=== PATIENT | female | born 1960 | race Caucasian/White ===

== ENCOUNTER 2016-12-06 18:23 | Emergency (ER) | payer MEDICAID ==
[2016-12-06 18:32] VITALS: BP 127/77
--- NOTE | 2016-12-06 18:55 | ERNOTE ---
Psychological HPI - Date Date of Service: 12/06/16 - General Chief Complaint: Anxiety Source: patient, family Exam Limitations: no limitations - Immun/Allergies/Home Medications Allergies/Adverse Reactions: Allergies bee venom (honey bee) Allergy (Verified 12/06/16 18:32) Hives ibuprofen Allergy (Verified 12/06/16 18:32) sucralfate Adverse Reaction (Verified 12/06/16 18:32) Nausea Home Medications: HOME MEDICATIONS Albuterol Sulfate 2.5 mg IH QID 09/25/12 [Last Taken Unknown] Sumatriptan Succinate [Imitrex] 100 mg PO PRN PRN 09/25/12 [Last Taken Unknown] Sertraline HCl [Zoloft] 50 mg PO DAILY 06/01/15 [Last Taken Unknown] Acetaminophen [Tylenol] 650 mg PO QID PRN #0 tablet 10/11/15 [Last Taken Unknown ] Clonidine HCl [Catapres] 0.2 mg PO BID 01/08/16 [Last Taken Unknown] Albuterol Sulfate [Proair Hfa] 1 - 2 puff IH Q4H PRN #1 inhaler 09/22/16 [Last Taken Unknown] Doxycycline Hyclate [Vibratab] 100 mg PO BID #14 tablet 09/22/16 [Last Taken Unknown] Potassium Chloride [Klor-Con] 20 meq PO BID #4 packet 09/22/16 [Last Taken Unknown] Prednisone [Deltasone] 20 mg PO BID #7 tablet 09/22/16 [Last Taken Unknown] - History of Present Illness Narrative: Patient came for evaluation. Patient was reported she double up on her medications and then got dizzy. Patient at the moment is feeling well she came with a daughter that wanted patient to be evaluated, but patient refused to be evaluated. Patient at the moment is aware of her surroundings is oriented to time, place, person, and situation. Patient with no LOC or any trauma reported. Time Seen by Provider: 12/06/16 18:42 Arrived by: private car Onset/duration: gone now, better Associated Symptoms: other - Patient was feeling anxious but now is feeling well Prior Treament: other - None Review of Systems - Review of Systems Constitutional: Absent: fever, chills, malaise EYE: Present: no symptoms reported ENT: Present: no symptoms reported Respiratory: Absent: cough Cardiology: Absent: chest pain, palpitations, syncope, edema, claudication Gastrointestinal/Abdominal: Absent: nausea, vomiting, diarrhea, constipation, abdominal pain Genitourinary: Absent: frequency Musculoskeletal: Present: no symptoms reported Skin: Present: no symptoms reported Neurological: Present: anxiety. Absent: depressed, emotional problems, headache , dizziness/light-headedness, seizure, weakness, numbness, tingling, tremors, pre-existing deficit Hematologic/Lymphatic: Absent: easy bruising, easy bleeding Psych: Present: anxiety. Absent: depressed, emotional problems - Patient's Past Medical History Patient History - Medical: Anxiety, Arthritis, Bipolar, Depression, GERD Patient History - Cardiac/Respiratory: Asthma, COPD Patient History - Cancer: No Hx of Cancer Patient History - Surgical Procedures: Cholecystectomy, , D & C, Tubal Ligation, Other - Family History Mother Family History - Medical: Diabetes Type 1 Family History - Cardiac/Respiratory: CHF, CVA/Stroke Father Family History - Medical: Brother Family History - Medical: Diabetes Type 1 Family History - Cardiac/Respiratory: CVA/Stroke - Social History Living Situations: home Smoking Status: Former smoker Alcohol Use: none Drug Use: none Physical Exam - Physical Exam General Appearance: Present: wd/wn, alert, no apparent distress Eye Exam: Normal inspection: bilateral, PERRL: bilateral, EOMI: bilateral Ears, Nose, Throat: Present: normal ENT inspection, hearing grossly normal, normal pharynx Neck: Present: normal inspection, nontender Respiratory: Present: no respiratory distress, normal breath sounds, no accessory muscle use, chest nontender, lungs clear Cardiovascular/Chest: Present: regular rate, rhythm, no murmur, normal peripheral pulses Gastrointestinal/Abdominal: Present: normal bowel sounds, nontender, nondistended, soft, no organomegaly Back Exam: Present: no CVA tenderness Extremity Exam: Present: normal inspection, non-tender, no edema, normal range of motion Neurological Exam: Present: alert, oriented, normal mood/affect, no motor/ sensory deficits, other - Patient with no suicidal ideation, homicidal manifestation, or active hallucinations at this point. Patient with a full mental status, is aware of her environment. Skin Exam: Absent: diaphoresis, cyanosis, jaundice, pallor, skin rash Lymphatic Exam: Present: no adenopathy ED Progress - Date and Time Seen: Date and Time: 12/06/16 18:51 Patient was offered a medical evaluation was done a basic physical evaluation, but patient refused any further testing and wanted to go home. Patient was explained risk and benefits and welcome to return is she changed her mind. Patient at the moment was in no distress. RN completed AMA form as hospital bylaws request. - Vital Signs Patient's Vital Signs:: I have reviewed the patient's vital signs. Vital Signs: Vital Signs 12/06/16 18:27 Temperature 36.4 C Pulse Rate 139 H Respiratory 24 H Rate Blood Pressure 127/77 O2 Sat by Pulse 98 Oximetry - Progress/Reassessment Chief Complaint: Anxiety Departure Clinical Impression: Anxiety - Departure Disposition: Against medical advice Condition: Stable Instructions: Panic Attacks, [id number] Referrals: Madi Cevallos MD [Primary Care Provider] -
== END 2016-12-06 18:48 | disposition left against medical advice (07) ==
LOC: ER 18:23
DX: F41.9 Anxiety disorder, unspecified (principal); Z87.891 Personal history of nicotine dependence; Z90.49 Acquired absence of other specified parts of digestive tract

== ENCOUNTER 2016-12-06 19:26 | Emergency (ER) | payer MEDICAID ==
[2016-12-06] MEDS ORDERED: ONDANSETRON HCL/PF 2 MG/ML VIAL IV ONE (19:34)
[2016-12-06] MEDS ORDERED: FAMOTIDINE 10 MG/ML VIAL IV ONE ×2 (19:37→19:38)
[2016-12-06] MEDS ORDERED: ONDANSETRON HCL/PF 2 MG/ML VIAL ONE (19:38)
[2016-12-06 20:02] LABS: Urine Bilirubin Negative (NEGATIVE); Urine Blood Negative /ul (NEGATIVE); Urine Ketone Negative (NEGATIVE); Urine Nitrite Negative (NEGATIVE); Urine Protein Negative (NEGATIVE); Urine Specific Gravity <=1.005 SP.GR. (1.005-1.010); Urine Urobilinogen Normal (NORMAL)
--- NOTE | 2016-12-06 20:02 | ERNOTE ---
Medical Problem HPI - General Chief Complaint: Nausea/Vomiting Time Seen by Provider: 12/06/16 19:34 Source: patient, family Exam Limitations: clinical condition - Immun/Allergies/Home Medications Immunizations: IMMUNIZATION HX Immunizations Up to Date Yes History of Influenza Vaccine No Hx Pneumococcal Vaccination No Allergies/Adverse Reactions: Allergies bee venom (honey bee) Allergy (Verified 12/06/16 18:32) Hives ibuprofen Allergy (Verified 12/06/16 18:32) sucralfate Adverse Reaction (Verified 12/06/16 18:32) Nausea Home Medications: HOME MEDICATIONS Albuterol Sulfate 2.5 mg IH QID 09/25/12 [Last Taken Unknown] Sumatriptan Succinate [Imitrex] 100 mg PO PRN PRN 09/25/12 [Last Taken Unknown] Sertraline HCl [Zoloft] 50 mg PO DAILY 06/01/15 [Last Taken Unknown] Acetaminophen [Tylenol] 650 mg PO QID PRN #0 tablet 10/11/15 [Last Taken Unknown ] Clonidine HCl [Catapres] 0.2 mg PO BID 01/08/16 [Last Taken Unknown] Albuterol Sulfate [Proair Hfa] 1 - 2 puff IH Q4H PRN #1 inhaler 09/22/16 [Last Taken Unknown] Doxycycline Hyclate [Vibratab] 100 mg PO BID #14 tablet 09/22/16 [Last Taken Unknown] Potassium Chloride [Klor-Con] 20 meq PO BID #4 packet 09/22/16 [Last Taken Unknown] Prednisone [Deltasone] 20 mg PO BID #7 tablet 09/22/16 [Last Taken Unknown] Potassium Chloride [K-Dur] 20 meq PO DAILY #30 tab 12/06/16 [Last Taken Unknown] - History of Present History Narrative: Pt states that she has had abdominal pain for 1 week. Family states that the larger problem is that she has been confused and not sleeping for more than a month Timing: getting worse Severity: moderate, severe Review of Systems - Review of Systems Constitutional: Absent: recent illness, fever EYE: Present: no symptoms reported ENT: Present: no symptoms reported Respiratory: Present: shortness of breath - mild, cough Cardiology: Absent: chest pain Gastrointestinal/Abdominal: Present: See HPI, nausea, vomiting, abdominal pain Genitourinary: Present: no symptoms reported Musculoskeletal: Present: no symptoms reported Skin: Absent: rash Neurological: Present: emotional problems, dizziness/light-headedness, other - confusion, Endocrine: Present: no symptoms reported Hematologic/Lymphatic: Present: no symptoms reported - Patient's Past Medical History Patient History - Medical: Anxiety, Arthritis, Bipolar, Depression, GERD, Liver Disease - Hep C Patient History - Cardiac/Respiratory: Asthma, COPD Patient History - Cancer: No Hx of Cancer Patient History - Surgical Procedures: Cholecystectomy, , D & C, Tubal Ligation, Other - Family History Mother Family History - Medical: Diabetes Type 1 Family History - Cardiac/Respiratory: CHF, CVA/Stroke Father Family History - Medical: Brother Family History - Medical: Diabetes Type 1 Family History - Cardiac/Respiratory: CVA/Stroke - Social History Living Situations: home Smoking Status: Never smoker Have you smoked in the past 12 months: No Do you dip or chew tobacco: No Patient requests Smoking Cessation Consult: No Initiate information on Smoking Cessation: No Alcohol Use: none Drug Use: none Physical Exam - Physical Exam General Appearance: Present: wd/wn, alert, no apparent distress Eye Exam: Normal inspection: bilateral, PERRL: bilateral, EOMI: bilateral Ears, Nose, Throat: Present: normal ENT inspection, hearing grossly normal, normal pharynx Neck: Present: normal inspection, nontender Respiratory: Present: no respiratory distress, normal breath sounds, no accessory muscle use, chest nontender, lungs clear Cardiovascular/Chest: Present: no murmur, normal peripheral pulses, tachycardia Gastrointestinal/Abdominal: Present: normal bowel sounds, tenderness - minimal b /l lower quads. Absent: guarding, rebound Back Exam: Present: normal inspection, normal range of motion Extremity Exam: Present: normal inspection, non-tender, no edema, normal range of motion Neurological Exam: Present: alert, oriented, normal mood/affect, no motor/ sensory deficits Skin Exam: Present: normal color, warm/dry Lymphatic Exam: Present: no adenopathy ED Progress - Results and Orders Patient's Lab Results:: I have reviewed the patient's lab results. Results and Orders: Laboratory Tests 12/06/16 12/06/16 12/06/16 19:55 19:55 19:55 WBC 4.6 Hgb 13.9 Hct 41.6 Plt Count 160 PT 10.6 INR (Anticoag Therapy) 1.02 PTT ([place]) 26.9 Sodium 143 H Potassium 2.6 L D Chloride 104 Carbon Dioxide 24.9 Anion Gap 16.7 H BUN 5 Creatinine 1.10 Est GFR (Non-Af Amer) 54 L Random Glucose 169 H Calcium 8.6 Total Bilirubin 0.3 AST 16 ALT 19 Alkaline Phosphatase 73 Troponin I Less than 0.017 Total Protein 8.0 Albumin 3.8 Amylase 54 Lipase 99 Urine Color Urine Appearance Urine pH Ur Specific [place] Urine Protein Urine Glucose (UA) Urine Ketones Urine Blood Urine Nitrate Urine Bilirubin Urine Urobilinogen Ur Leukocyte Esterase Urine RBC Urine WBC Ur Epithelial Cells Urine Bacteria Hyaline Casts Urine Culture Comments Urine Opiates Screen Barbiturate Screen Ur Phencyclidine Scrn Urine Amphetamine U Benzodiazepines Scrn Urine Cocaine Screen Urine Marijuana (THC) 12/06/16 12/06/16 19:55 19:55 WBC Hgb Hct Plt Count PT INR (Anticoag Therapy) PTT ([place]) Sodium Potassium Chloride Carbon Dioxide Anion Gap BUN Creatinine Est GFR (Non-Af Amer) Random Glucose Calcium Total Bilirubin AST ALT Alkaline Phosphatase Troponin I Total Protein Albumin Amylase Lipase Urine Color Yellow Urine Appearance Clear Urine pH 6.0 Ur Specific [place] <=1.005 Urine Protein Negative Urine Glucose (UA) Negative Urine Ketones Negative Urine Blood Negative Urine Nitrate Negative Urine Bilirubin Negative Urine Urobilinogen Normal Ur Leukocyte Esterase 25 H Urine RBC None seen Urine WBC 0-5 Ur Epithelial Cells 0-5 Urine Bacteria None seen Hyaline Casts 0-5 H Urine Culture Comments Culture to follow Urine Opiates Screen Negative Barbiturate Screen Negative Ur Phencyclidine Scrn Negative Urine Amphetamine Negative U Benzodiazepines Scrn Negative Urine Cocaine Screen Negative Urine Marijuana (THC) Positive H - Vital Signs Patient's Vital Signs:: I have reviewed the patient's vital signs. Vital Signs: Vital Signs 12/06/16 12/06/16 12/06/16 18:27 19:26 19:57 Temperature 36.4 C 36.5 C Pulse Rate 134 H 126 H Respiratory 16 16 Rate Blood Pressure 127/77 113/79 113/79 O2 Sat by Pulse 93 97 Oximetry - X-Ray X-Ray #1 X-Ray: chest Interpretation: Reviewed by me X-ray Comments: No edema or infiltrate. peribronchial thickening suggesting bronchitis. - CT/Ultrasound CT/Ultrasound Narrative: CT head: nothing acute CT abd/ pelvis: hepatic steatosis throughout the liver. Mild splenomegaly. Hiatal hernia. no obstruction. non-specific gas pattern - Progress/Reassessment Chief Complaint: Nausea/Vomiting Progress:: Improved Progress Note-Subjective: 12/06/16 21:08 Discussed hypokalemia with patient and daughter, they state she has had this before. Discussed liver changes on CT, pt states she has had hep. C. Discussed possible anticholenergic SE of hyoscymine and that could be the reason for her intermittent confusion. Discussed stopping Marijuana use as well. Departure - Departure Clinical Impression: Hypokalemia, Confusion caused by a drug, Adverse effect of other parasympatholytics [anticholinergics and antimuscarinics] and spasmolytics, initial encounter Disposition: Home Follow Up Needed Condition: Good Instructions: Hypokalemia, Confusion Additional Instructions: Take potassium daily. stop the hyoscyamine. See Dr. Dominguez in a week or so Prescriptions: Potassium Chloride [K-Dur] 20 meq PO DAILY #30 tab
[2016-12-06 20:04] LABS: Hematocrit 41.6 % (37.0-47.0); Hemoglobin 13.9 gm/dL (12.5-16.0); Mean Corpuscular Hemoglobin 30.1 pg (27-31); Mean Corpuscular Hgb Conc 33.4 g/dl (32-36); Mean Platelet Volume 10.4 fl (6.0-9.5); Neutrophil # 2.6 K/mm3 (1.3-6.0); Platelet Count 160 K/mm3 (150-450); Red Blood Count 4.62 M/mm3 (4.2-5.4); Red Cell Distribution Width 13.4 % (11.5-14.0); White Blood Count 4.6 K/mm3 (4.0-10.5)
[2016-12-06 20:14] LABS: Prothrombin Time (Patient) 10.6 Seconds (9.4-11.4)
[2016-12-06 20:15] LABS: INR 1.02 INR (0.90-1.10); Partial Thrombolplastin Time 26.9 Seconds (24-32)
[2016-12-06 20:16] LABS: Cocaine Ur Negative (NEGATIVE); Urine Appearance Clear; Urine Bacteria None Seen; Urine Barbiturate Negative (NEGATIVE); Urine Benzodiazepines Negative (NEGATIVE); Urine Color Yellow; Urine Hyaline Cast 0-5 /LPF; Urine Opiates Negative (NEGATIVE); Urine PCP Negative (NEGATIVE); Urine RBC None Seen /hpf (0-5); Urine WBC 0-5 /hpf (0-5)
[2016-12-06 20:17] LABS: Urine THC Positive (NEGATIVE)
[2016-12-06 20:23] LABS: ALT 19 U/L (19-67); AST 16 U/L (0-48); Albumin * 3.8 gm/dl (3.4-5.0); Alkaline Phosphatase * 73 U/L (50-170); Amylase * 54 U/L (25-115); Anion Gap 16.7 mmol/L (6.8-13.8); BUN/Creatinine Ratio 4.5 (9.0-21.6); Bilirubin, Total 0.3 mg/dL (0.0-1.1); Blood Urea Nitrogen 5 mg/dL (3-23); Ca. Corrected For Albumin 8.4 mg/dL (8.4-10.2); Calcium * 8.6 mg/dL (7.9-10.9); Carbon Dioxide 24.9 mmol/L (24-32.6); Chloride 104 mmol/L (97-106); Glucose * 169 mg/dL (70-110); Lipase 99 U/L (73-393); Potassium 2.6 mmol/L (3.4-4.6); Sodium 143 mmol/L (132-142); Troponin I Less than 0.017 ng/ml (0.00-0.10)
[2016-12-06 20:53] VITALS: BP 118/81
[2016-12-06] MEDS ORDERED: POTASSIUM CHLORIDE 20 MEQ TABLET.SA PO ONE (20:58)
[2016-12-06] MEDS ORDERED: POTASSIUM CHLORIDE 20 MEQ TABLET.SA ONE (20:59)
== END 2016-12-06 21:05 | disposition home or self-care (01) ==
LOC: ER 19:26
DX: E87.6 Hypokalemia (principal); T44.3X5A Adverse effect of other parasympatholytics [anticholinergics and antimuscarinics] and spasmolytics, initial encounter; F19.921 Other psychoactive substance use, unspecified with intoxication with delirium; Z90.49 Acquired absence of other specified parts of digestive tract
CPT/HCPCS: 36415; 70450; 71020; 74176; 80053; 81001; 82150; 83690; 84484; 85025; 85610; 85730; 87086; 93005; 96374; 99284; G0479

== ENCOUNTER 2017-01-03 20:14 | Emergency (ER) | payer MEDICAID ==
[2017-01-03 20:42] VITALS: BP 103/67
--- OUTSIDE RECORDS SUMMARY | 2017-01-03 20:46 | XMS REPORT | Continuity of Care Document ---
:1960 Author Organization [facility] ([facility]) Address [address] [place] [address] Phone [phone] Care Team Providers Name Role Phone Harsh Saavedra Primary Care Provider [phone] Source Comments This disclosure is being made pursuant to the Care Everywhere program, applicable federal and state laws, and may not contain all informaitonavailable regarding this patient.[facility] ([facility]) Active Allergies and Adverse Reactions No Known Allergies Current Medications Prescription Sig. Disp. Refills Start Date End Date Status cyclobenzaprine 10 mg Take 10 mg by Active tablet mouth 3 times daily . SUMAtriptan 100 mg Take 100 mg by Active tablet mouth daily as needed May repeat in 2 hours if needed. SERTraline 50 mg Take 50 mg by Active tablet mouth 3 times daily . chlorproMAZINE 25 mg Take 25 mg by Active tablet mouth 4 times daily as needed . zolpiDEM 10 mg tablet Take 10 mg by Active mouth at bedtime traMADol 50 mg tablet Take 50 mg by Active mouth at bedtime ALPRAZolam 1 mg tablet Take 1 mg by Active mouth 4 times daily hyoscyamine 0.125 mg Take 125 mcg by Active tablet mouth 3 times daily . cloNIDine HCl 0.2 mg Take 0.2 mg by Active tablet mouth 3 times daily ledipasvir-sofosbuvir Take 1 tablet by 28 tablet 2 07/15/2015 Active (HARVONI) 90-400 mg mouth daily per tablet omeprazole 20 mg Take 1 capsule 30 capsule 2 01/19/2016 Active enteric coated capsule (20mg) by mouth once daily x 7 days, then discontinue completely. Active Problems Problem Noted Date Chronic hepatitis C without hepatic coma Gt 1b Low viral load, minimal 2014 fibrosis Treatment Naive THC pos urine 2014 Overview: hep C Anxiety and depression 07/15/2015 Overview: depression Chronic pain syndrome 07/15/2015 Most Recent Encounters Date Type Specialty Providers Description 10/11/2016 Orders/Notes Med GI/Hepatology Alton Silva MD Dx: Hepatitis C (Primary Dx) Immunizations Name Dates Previously Given Next Due Hepatitis B, unspecified 12/29/1996 Social History Tobacco Use Types Packs/Day Years Used Date Never Smoker Smokeless Tobacco: Never Used Alcohol Use Drinks/Week oz/Week Comments No Last Filed Vital Signs Vital Sign Reading Time Taken Blood Pressure 101/58 07/15/2015 7:00 AM CDT Pulse 94 07/15/2015 7:00 AM CDT Temperature 36.4 C (97.5 F) 07/15/2015 7:00 AM CDT Respiratory Rate 16 08/15/2006 12:00 AM CDT Height 1.6 m (5' 3") 01/19/2016 11:00 AM MANAGER APPLICATION Weight 72 kg (158 lb 11.7 oz) 01/19/2016 11:00 AM MANAGER APPLICATION Body Mass Index 28.13 01/19/2016 11:00 AM MANAGER APPLICATION Oxygen Saturation 99% 10/20/2014 11:12 AM MANAGER APPLICATION Plan of Care Date Type Specialty Providers Description 02/08/2017 Appointment Radiology Chief Comp: Patient Reported Reason For Visit 02/08/2017 Appointment Med GI/Hepatology Alton Silva MD Chief Comp: Patient [address] [place] [address] Visit [phone] (Fax) Health Maintenance Due Date Last Done Comments HCV Screening 1960 Tdap Vaccine 1970 Lipid Disorder Screening 1977 MMR Vaccine 1977 Td Vaccine 1977 Pneumococcal Vaccine (1 of 1 - PPSV23) 1978 Hepatitis B Vaccine (2 of 3 - Primary Series) 01/26/1997 12/29/1996 Mammogram 1999 Cervical Cancer Screening 01/12/2000 01/12/1997 Colonoscopy 08/16/2009 Influenza Vaccine: Seasonal (#1) 06/19/2016 Results from Last 3 Months Not on file
--- NOTE | 2017-01-03 21:11 | ERNOTE ---
Medical Problem HPI - Narrative Date of Service: 01/03/17 - General Chief Complaint: General Assessment Time Seen by Provider: 01/03/17 20:37 Source: patient, RN notes reviewed, old records Exam Limitations: other - poor historian - Immun/Allergies/Home Medications Immunizations: IMMUNIZATION HX Immunizations Up to Date Yes History of Influenza Vaccine No Hx Pneumococcal Vaccination No Allergies/Adverse Reactions: Allergies bee venom (honey bee) Allergy (Verified 01/03/17 20:23) Hives ibuprofen Allergy (Verified 01/03/17 20:23) sucralfate Adverse Reaction (Verified 01/03/17 20:23) Nausea Home Medications: HOME MEDICATIONS Sumatriptan Succinate [Imitrex] 100 mg PO PRN PRN 09/25/12 [Last Taken Unknown] Acetaminophen [Tylenol] 650 mg PO QID PRN #0 tablet 10/11/15 [Last Taken Unknown ] Clonidine HCl [Catapres] 0.2 mg PO TID 01/08/16 [Last Taken Unknown] Potassium Chloride [Klor-Con] 20 meq PO BID #4 packet 09/22/16 [Last Taken Unknown] Albuterol Sulfate [Proair Hfa] 1 - 2 puff IH Q6H PRN 01/03/17 [Last Taken Unknown] Cyclobenzaprine HCl [Flexeril] 10 mg PO TID 01/03/17 [Last Taken Unknown] Omeprazole 40 mg PO DAILY 01/03/17 [Last Taken Unknown] - Pain Score Pain Score #1 Pain Score: 0 - History of Present History Narrative: 56 y/o female ambulatory to the ED for lightheadedness, paresthesias and generally not feeling well since earlier today. She saw her PCP yesterday and adjustments were made to her medications. She believes this is the cause of her symptoms. Her Clonopin and Depakote were increased from once a day at bedtime to twice a day. She was also started on Risperdal. She denies any other symptoms , but is concerned that she will not be able to sleep tonight. Review of Systems - Review of Systems Constitutional: Present: malaise. Absent: fever, chills EYE: Absent: eye pain, blurred vision ENT: Absent: ear pain, nose congestion, sore throat Respiratory: Absent: shortness of breath, cough Cardiology: Absent: chest pain, syncope Gastrointestinal/Abdominal: Absent: nausea, vomiting, diarrhea, abdominal pain, eating less, drinking less Genitourinary: Present: no symptoms reported Musculoskeletal: Absent: muscle pain, joint pain Neurological: Present: dizziness/light-headedness, numbness, tingling. Absent: headache, weakness Endocrine: Present: no symptoms reported Hematologic/Lymphatic: Present: no symptoms reported Psych: Present: anxiety - Patient's Past Medical History Patient History - Medical: Anxiety, Arthritis, Bipolar, Depression, GERD, Liver Disease Patient History - Cardiac/Respiratory: Asthma, Bronchitis, COPD, CVA/Stroke, Pneumonia, Home O2 Use Patient History - Cancer: No Hx of Cancer Patient History - Surgical Procedures: Cholecystectomy, , D & C, Tubal Ligation, Other Patient History - Other: Other LMP (females 10-50): Menopausal - Family History Mother Family History - Medical: Diabetes Type 1 Family History - Cardiac/Respiratory: CHF, CVA/Stroke Father Family History - Medical: Brother Family History - Medical: Diabetes Type 1 Family History - Cardiac/Respiratory: CVA/Stroke - Social History Living Situations: home Abuse History: No History of abuse Psych History: Hx of Anxiety, Hx of Depression Smoking Status: Former smoker Alcohol Use: occasionally Drug Use: none - Immunizations Immunizations Up to Date: Yes Hx Pneumococcal Vaccination: No History of Influenza Vaccine: No Physical Exam - Physical Exam General Appearance: Present: wd/wn, alert, no apparent distress, other - disheveled appearance Eye Exam: Normal inspection: bilateral, PERRL: bilateral, EOMI: bilateral Ears, Nose, Throat: Present: normal ENT inspection, hearing grossly normal, normal pharynx Neck: Present: normal inspection, nontender, supple Respiratory: Present: no respiratory distress, normal breath sounds, no accessory muscle use, lungs clear Cardiovascular/Chest: Present: regular rate, rhythm, no murmur, normal peripheral pulses Gastrointestinal/Abdominal: Present: normal bowel sounds, nontender, nondistended, soft Extremity Exam: Present: normal inspection, no edema Neurological Exam: Present: alert, oriented, normal mood/affect, no motor/ sensory deficits Skin Exam: Present: normal color, warm/dry ED Progress - Vital Signs Patient's Vital Signs:: I have reviewed the patient's vital signs. Vital Signs: Vital Signs 01/03/17 01/03/17 20:18 20:41 Temperature 36.2 C L Pulse Rate 116 H 95 Respiratory 18 16 Rate Blood Pressure 110/71 103/67 O2 Sat by Pulse 99 98 Oximetry - Progress/Reassessment Chief Complaint: General Assessment Progress:: Unchanged Plan - Plan Plan: Patient has stable vital signs, she denies any pain, she is lightheaded and has paresthesias in her right arm - which she states she has had before. Symptoms are likely d/t the changes in her medications. Patient instructed to contact her PCP before taking any additional doses of the different medications. Departure - Departure Clinical Impression: Medication side effects Disposition: Home Follow Up Needed Condition: Stable Additional Instructions: Do not take your Clonopin or Depakote tomorrow morning and contact Dr. Shon Grayson's office regarding your symptoms Referrals: Madi Cevallos MD [Primary Care Provider] -
== END 2017-01-03 20:56 | disposition home or self-care (01) ==
LOC: ER 20:14
DX: T42.4X5A Adverse effect of benzodiazepines, initial encounter (principal); T42.6X5A Adverse effect of other antiepileptic and sedative-hypnotic drugs, initial encounter; R42 Dizziness and giddiness; K21.9 Gastro-esophageal reflux disease without esophagitis; J44.9 Chronic obstructive pulmonary disease, unspecified

== ENCOUNTER 2017-01-24 18:54 | Emergency (ER) | payer MEDICAID ==
[2017-01-24] MEDS: NORMAL SALINE 1,000 ML IV ONE (19:07)
[2017-01-24 19:17] LABS: Urine Bilirubin Negative (NEGATIVE); Urine Blood Negative /ul (NEGATIVE); Urine Ketone Negative (NEGATIVE); Urine Nitrite Negative (NEGATIVE); Urine Protein Negative (NEGATIVE); Urine Specific Gravity 1.025 SP.GR. (1.005-1.010); Urine Urobilinogen Normal (NORMAL)
[2017-01-24 19:24] LABS: Urine Appearance Clear; Urine Bacteria None Seen; Urine Color Yellow; Urine RBC None Seen /hpf (0-5); Urine WBC None Seen /hpf (0-5)
--- OUTSIDE RECORDS SUMMARY | 2017-01-24 19:24 | XMS REPORT | Continuity of Care Document ---
:1960 Author Organization [facility] ([facility]) Address [address] [place] [address] Phone [phone] Care Team Providers Name Role Phone Harsh Saavedra Primary Care Provider [phone] Source Comments This disclosure is being made pursuant to the Care Everywhere program, applicable federal and state laws, and may not contain all informaitonavailable regarding this patient.[facility] ([facility]) Active Allergies and Adverse Reactions No [...] 07/15/2015 Overview: depression Chronic pain syndrome 07/15/2015 Immunizations Name Dates Previously Given Next Due [...] 1.6 m (5' 3") 01/19/2016 11:00 AM HELP DESK ASSOCIATE Weight 72 kg (158 lb 11.7 oz) 01/19/2016 11:00 AM HELP DESK ASSOCIATE Body Mass Index 28.13 01/19/2016 11:00 AM HELP DESK ASSOCIATE Oxygen Saturation 99% 10/20/2014 11:12 AM HELP DESK ASSOCIATE Plan of Care Date Type Specialty Providers Description 02/08/2017 Appointment Radiology Chief Comp: Patient Reported Reason For Visit 02/08/2017 Appointment Med GI/Hepatology Alton Silva MD Chief Comp: Patient [address] [place] [address] Visit [phone] (Fax) Health Maintenance Due Date Last Done [...]
[2017-01-24 19:31] LABS: Cocaine Ur Negative (NEGATIVE); Urine Barbiturate Negative (NEGATIVE); Urine Benzodiazepines Negative (NEGATIVE); Urine Opiates Negative (NEGATIVE); Urine PCP Negative (NEGATIVE)
[2017-01-24 19:32] LABS: Urine THC Positive (NEGATIVE)
[2017-01-24 19:33] LABS: Hematocrit 37.4 % (37.0-47.0); Hemoglobin 12.4 gm/dL (12.5-16.0); Mean Cell Volume 92.8 fl (78-100); Mean Corpuscular Hemoglobin 30.8 pg (27-31); Mean Corpuscular Hgb Conc 33.2 g/dl (32-36); Mean Platelet Volume 9.7 fl (6.0-9.5); Neutrophil # 1.7 K/mm3 (1.3-6.0); Platelet Count 90 K/mm3 (150-450); Red Blood Count 4.03 M/mm3 (4.2-5.4); Red Cell Distribution Width 13.6 % (11.5-14.0); White Blood Count 3.5 K/mm3 (4.0-10.5)
--- NOTE | 2017-01-24 19:36 | ERNOTE ---
Medical Problem HPI - Narrative Date of Service: 01/24/17 - General Chief Complaint: Drug Overdose Time Seen by Provider: 01/24/17 19:00 Source: family, EMS Exam Limitations: clinical condition - Immun/Allergies/Home Medications Immunizations: IMMUNIZATION HX Immunizations Up to Date Yes History of Influenza Vaccine No Hx Pneumococcal Vaccination No Allergies/Adverse Reactions: Allergies bee venom (honey bee) Allergy (Verified 01/24/17 19:05) Hives ibuprofen Allergy (Verified 01/24/17 19:05) sucralfate Adverse Reaction (Verified 01/24/17 19:05) Nausea Home Medications: HOME MEDICATIONS Sumatriptan Succinate [Imitrex] 100 mg PO PRN PRN 09/25/12 [Last Taken Unknown] Acetaminophen [Tylenol] 650 mg PO QID PRN #0 tablet 10/11/15 [Last Taken Unknown ] Clonidine HCl [Catapres] 0.2 mg PO TID 01/08/16 [Last Taken Unknown] Potassium Chloride [Klor-Con] 20 meq PO BID #4 packet 09/22/16 [Last Taken Unknown] Albuterol Sulfate [Proair Hfa] 1 - 2 puff IH Q6H PRN 01/03/17 [Last Taken Unknown] Cyclobenzaprine HCl [Flexeril] 10 mg PO TID 01/03/17 [Last Taken Unknown] Omeprazole 40 mg PO DAILY 01/03/17 [Last Taken Unknown] - History of Present History Narrative: Patient took an unknown quantity of an unknown type of medications today and it is unclear whether she did this because of suicidal intentions or whether she was trying to do something recreational. Patient is unresponsive to physical stimuli at this time. 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 Timing: constant Severity: severe Review of Systems - Narrative Narrative: I am unable to obtain a clear review of systems or any review of systems at all because the patient is in a comatose state and is not able to manage her own secretions. I am told by the [id number] that the patient has a history of mental illness and as well as some illicit substance abuse also. - Patient's Past Medical History Patient History - Medical: Anxiety, Arthritis, Bipolar, Depression, GERD, Liver Disease Patient History - Cardiac/Respiratory: Asthma, Bronchitis, COPD, CVA/Stroke, Pneumonia, Home O2 Use Patient History - Cancer: No Hx of Cancer Patient History - Surgical Procedures: Cholecystectomy, , D & C, Tubal Ligation, Other Patient History - Other: Other - Family History Mother Family History - Medical: Diabetes Type 1 Family History - Cardiac/Respiratory: CHF, CVA/Stroke Father Family History - Medical: Brother Family History - Medical: Diabetes Type 1 Family History - Cardiac/Respiratory: CVA/Stroke - Social History Living Situations: home Abuse History: No History of abuse Psych History: Hx of Anxiety, Hx of Depression Alcohol Use: occasionally Drug Use: none - Immunizations Immunizations Up to Date: Yes Hx Pneumococcal Vaccination: No History of Influenza Vaccine: No Physical Exam - Physical Exam General Appearance: Present: severe distress Eye Exam: Normal inspection: bilateral, PERRL: bilateral Ears, Nose, Throat: Present: other - Pt is pooling her secretions Neck: Present: normal inspection, nontender Respiratory: Present: no respiratory distress, normal breath sounds, no accessory muscle use, chest nontender, lungs clear Cardiovascular/Chest: Present: regular rate, rhythm, no murmur, normal peripheral pulses Gastrointestinal/Abdominal: Present: normal bowel sounds, nontender, nondistended, soft, no organomegaly Rectal Exam: Present: deferred Back Exam: Present: normal inspection, normal range of motion Extremity Exam: Present: normal inspection, non-tender, no edema, normal range of motion Neurological Exam: Present: alert, oriented, normal mood/affect Skin Exam: Present: normal color, warm/dry Lymphatic Exam: Present: no adenopathy ED Progress - Results and Orders Patient's Lab Results:: I have reviewed the patient's lab results. - Vital Signs Patient's Vital Signs:: I have reviewed the patient's vital signs. Vital Signs: Vital Signs 01/24/17 18:59 Temperature 36.7 C Pulse Rate 72 Respiratory 16 Rate Blood Pressure 128/79 O2 Sat by Pulse 98 Oximetry - EKG EKG read: Interp. by me - X-Ray X-Ray #1 X-Ray: chest Interpretation: Interp. by me X-ray Comments: Show ET tube was placed to far down after was pulled back approximate 4 cm it was found to be approximately 1 cm above the david. Repeat assessment of the head CT did not reveal any evidence of any subdural, epidural or any obvious subarachnoid. - Progress/Reassessment Chief Complaint: Drug Overdose Progress:: Unchanged - Transfer of Care Pending Results: CT/MRI results Expected Disposition: Transfer Procedures Intubation Method: endotrachial with venti Tube Size (cm): 7.0 Medications: Succinylcholine, Other - Rocuronium Intubation Complications: no complications Post Intubation Xray: Yes Plan - Plan Plan: As we do not have ICU beds here available to monitor the patient I discussed the case with Dr. oPe at [place] and provided that there is no head bleed patient will be transferred down to [place] for further monitoring. Departure - Departure Clinical Impression: Drug overdose Qualifiers: Encounter type: initial encounter Injury intent: undetermined intent Qualified Code(s): T50.904A - Poisoning by unspecified drugs, medicaments and biological substances, undetermined, initial encounter Disposition: [facility] Condition: Critical Referrals: Madi Cevallos MD [Primary Care Provider] - - Critical Care Total Time (mins): 65 Critical Care: She arrived patient was unresponsive and pulling her secretions had poor control of her gag reflex. Bnpxyikl-eq-plf was unable to give us any idea as to what should taken with the amount should taken. Her to protect her airway patient had to be intubated and placed on a propofol drip. She had an NG tube put in place as well and was verified to be in the gastric area on chest x-ray.
[2017-01-24 19:47] LABS: ALT 22 U/L (19-67); AST 30 U/L (0-48); Albumin * 3.4 gm/dl (3.4-5.0); Alkaline Phosphatase * 71 U/L (50-170); Anion Gap 14.2 mmol/L (6.8-13.8); BUN/Creatinine Ratio 8.1 (9.0-21.6); Bilirubin, Total 0.2 mg/dL (0.0-1.1); Blood Urea Nitrogen 8 mg/dL (3-23); Ca. Corrected For Albumin 7.9 mg/dL (8.4-10.2); Calcium * 7.7 mg/dL (7.9-10.9); Carbon Dioxide 26.2 mmol/L (24-32.6); Chloride 106 mmol/L (97-106); Glucose * 101 mg/dL (70-110); Potassium 4.4 mmol/L (3.4-4.6); Salicylate Less than 2.8 mg/dL (2.8-20.0); Sodium 142 mmol/L (132-142); Total Protein 7.2 gm/dL (6.2-8.2)
[2017-01-24] MEDS: NORMAL SALINE 1,000 ML IV PRN (20:09)
[2017-01-24] MEDS: PROPOFOL 1,000 MG/100 ML PIGGYBACK IV PRN (20:09)
[2017-01-24 20:38] VITALS: BP 107/75
== END 2017-01-24 21:00 | disposition short-term general hospital (02) ==
LOC: ER 18:54
PROC: 0BH17EZ Insertion of Endotracheal Airway into Trachea, Via Natural or Artificial Opening (ICD-10-PCS; principal; 2017-01-24)
DX: T50.904A Poisoning by unspecified drugs, medicaments and biological substances, undetermined, initial encounter (principal)
CPT/HCPCS: 31500; 36415; 36600; 70450; 71010; 80053; 80307; 81001; 82803; 85025; 93005; 94760; 96374; 99291; G0480; G0481

== ENCOUNTER 2017-08-21 05:16 | Emergency (ER) | payer MEDICAID ==
[2017-08-21] MEDS ORDERED: ALBUTEROL SULFATE/IPRATROPIUM 3 ML NEBU IH ONE ×2 (05:41→05:44)
--- NOTE | 2017-08-21 05:47 | ERNOTE ---
Time Seen by Provider: 08/21/17 05:34 Stated Complaint: ear infection head hurts cough running nose Presenting Symptoms:: cough, runny nose Source: patient Exam Limitations: no limitations Immunizations: IMMUNIZATION HX Immunizations Up to Date Yes History of Influenza Vaccine No Hx Pneumococcal Vaccination No Allergies/Adverse Reactions: Allergies ibuprofen Allergy (Verified 08/21/17 05:25) venom-honey bee [bee venom (honey bee)] Allergy (Verified 08/21/17 05:25) Hives sucralfate Adverse Reaction (Verified 08/21/17 05:25) Nausea Home Medications: HOME MEDICATIONS SUMAtriptan SUCCINATE [Imitrex] 100 mg PO PRN PRN 09/25/12 [Last Taken Unknown] Acetaminophen [Tylenol] 650 mg PO QID PRN #0 tablet 10/11/15 [Last Taken Unknown ] Albuterol Sulfate [Proair Hfa] 1 - 2 puff IH Q6H PRN 01/03/17 [Last Taken Unknown] Cyclobenzaprine HCl [Flexeril] 10 mg PO TID 01/03/17 [Last Taken 05/16/17] Omeprazole 40 mg PO DAILY 01/03/17 [Last Taken 05/16/17] Amox Tr/Potassium Clavulanate [Augmentin 875-125 Tablet] 875 mg PO Q12H #20 tab 08/21/17 [Last Taken Unknown] Methylprednisolone [Medrol Dosepak] 4 mg PO DAILY #21 tab.ds.pk 08/21/17 [Last Taken Unknown] - History of Present Ilness Narrative: Pt states she has had congestion and cough for 2-3 weeks and now having left ear pain. Timing: getting worse Severity: moderate Modifying Factors - Improves: Reports: nothing Associated Symptoms: Reports: shortness of breath, wheezing Review of Systems - Review of Systems Constitutional: Present: recent illness, chills, fatigue EYE: Present: no symptoms reported ENT: Present: See HPI, ear pain, nose congestion, nasal drainage Respiratory: Present: shortness of breath Cardiology: Present: chest pain Gastrointestinal/Abdominal: Present: nausea Genitourinary: Present: no symptoms reported Musculoskeletal: Present: muscle stiffness Skin: Present: no symptoms reported Neurological: Present: no symptoms reported Endocrine: Present: no symptoms reported Hematologic/Lymphatic: Present: no symptoms reported Psych: Present: no symptoms reported - Patient's Past Medical History Patient History - Medical: Anxiety, Arthritis, Bipolar, Depression, GERD, Liver Disease Patient History - Cardiac/Respiratory: Asthma, Bronchitis, COPD, CVA/Stroke, Pneumonia, Home O2 Use Patient History - Cancer: No Hx of Cancer Patient History - Surgical Procedures: Cholecystectomy, , D & C, Tubal Ligation, Other Patient History - Other: Other - Family History Mother Family History - Medical: Diabetes Type 1 Family History - Cardiac/Respiratory: CHF, CVA/Stroke Father Family History - Medical: Brother Family History - Medical: Diabetes Type 1 Family History - Cardiac/Respiratory: CVA/Stroke - Social History Living Situations: home Abuse History: No History of abuse Psych History: Hx of Anxiety, Hx of Depression, Hx of Bipolar Disorder, Current tx/ever been on anti-depressants or anti-anxiety meds Smoking Status: Former smoker Alcohol Use: rarely Drug Use: none - Immunizations Immunizations Up to Date: Yes Hx Pneumococcal Vaccination: No History of Influenza Vaccine: No Physical Exam - Physical Exam General Appearance: Present: wd/wn, alert, no apparent distress Head Exam: Present: normal inspection, no evidence of injury Eye Exam: Normal inspection: bilateral Ears, Nose, Throat: Present: abnormal TM (L) - red bulging, purlent material behind TM. Neck: Present: normal inspection, nontender, supple Respiratory: Present: no respiratory distress, normal breath sounds, lungs clear Cardiovascular/Chest: Present: regular rate, rhythm, no murmur, normal peripheral pulses Back Exam: Present: normal inspection, normal range of motion Extremity Exam: Present: normal inspection, normal range of motion, no edema Neurological Exam: Present: alert, oriented, normal mood/affect, no motor/ sensory deficits Skin Exam: Present: normal color, warm/dry Lymphatic Exam: Present: no adenopathy ED Progress - Results and Orders Patient's Lab Results:: I have reviewed the patient's lab results. Results and Orders: Laboratory Tests 08/21/17 08/21/17 05:50 05:50 WBC 7.5 Hgb 13.5 Hct 39.9 Plt Count 138 L Sodium 137 Potassium 3.6 Chloride 100 Carbon Dioxide 24.5 Anion Gap 16.1 H BUN 7 Creatinine 1.16 Random Glucose 196 H Calcium 8.4 Total Bilirubin 0.5 AST 36 ALT 45 Alkaline Phosphatase 89 Total Protein 9.1 H Albumin 3.8 - Vital Signs Patient's Vital Signs:: I have reviewed the patient's vital signs. Vital Signs: Vital Signs 08/21/17 05:20 Temperature 37.7 C H Pulse Rate 103 H Respiratory 20 Rate Blood Pressure 150/93 O2 Sat by Pulse 96 Oximetry - X-Ray X-Ray #1 X-Ray: chest Interpretation: Interp. by me X-ray Comments: Nothing acute - Progress/Reassessment Chief Complaint: Upper Respiratory Symptoms Departure Clinical Impression: Acute exacerbation of chronic obstructive airways disease Otitis media Qualifiers: Otitis media type: suppurative Chronicity: acute Laterality: left Recurrence: not specified as recurrent Spontaneous tympanic membrane rupture: without spontaneous rupture Qualified Code(s): H66.002 - Acute suppurative otitis media without spontaneous rupture of ear drum, left ear - Departure Disposition: Home self-care Condition: Good Instructions: Chronic Obstructive Pulmonary Disease Exacerbation, [id number] , Otitis Media, Adult, [id number] Additional Instructions: See your primary care physician if not improving Referrals: Madi Cevallos MD [Primary Care Provider] - Prescriptions: Amox Tr/Potassium Clavulanate [Augmentin 875-125 Tablet] 875 mg PO Q12H #20 tab Methylprednisolone [Medrol Dosepak] 4 mg PO DAILY #21 tab.ds.pk
[2017-08-21 05:57] LABS: Hematocrit 39.9 % (37.0-47.0); Hemoglobin 13.5 gm/dL (12.5-16.0); Mean Cell Volume 86.2 fl (78-100); Mean Corpuscular Hemoglobin 29.2 pg (27-31); Mean Corpuscular Hgb Conc 33.8 g/dl (32-36); Mean Platelet Volume 10.5 fl (6.0-9.5); Neutrophil # 4.8 K/mm3 (1.3-6.0); Platelet Count 138 K/mm3 (150-450); Red Blood Count 4.63 M/mm3 (4.2-5.4); Red Cell Distribution Width 13.4 % (11.5-14.0); White Blood Count 7.5 K/mm3 (4.0-10.5)
[2017-08-21 06:22] LABS: Albumin * 3.8 gm/dl (3.4-5.0); Anion Gap 16.1 mmol/L (6.8-13.8); Bilirubin, Total 0.5 mg/dL (0.0-1.1); Ca. Corrected For Albumin 8.2 mg/dL (8.4-10.2); Calcium * 8.4 mg/dL (7.9-10.9); Carbon Dioxide 24.5 mmol/L (24-32.6); Potassium 3.6 mmol/L (3.4-4.6); Total Protein 9.1 gm/dL (6.2-8.2)
[2017-08-21] MEDS ORDERED: AMOX TR/POTASSIUM CLAVULANATE 875 MG TABLET PO ONE (06:37)
[2017-08-21] MEDS ORDERED: AMOX TR/POTASSIUM CLAVULANATE 875 MG TABLET ONE (06:47)
[2017-08-21 07:04] VITALS: BP 124/88
== END 2017-08-21 06:55 | disposition home or self-care (01) ==
LOC: ER 05:16
DX: J44.1 Chronic obstructive pulmonary disease with (acute) exacerbation (principal); H66.002 Acute suppurative otitis media without spontaneous rupture of ear drum, left ear; K21.9 Gastro-esophageal reflux disease without esophagitis

== ENCOUNTER 2017-09-07 07:21 | Emergency (ER) | payer MEDICAID ==
[2017-09-07 07:53] LABS: Hematocrit 38.1 % (37.0-47.0); Hemoglobin 12.9 gm/dL (12.5-16.0); Mean Cell Volume 85.6 fl (78-100); Mean Corpuscular Hgb Conc 33.9 g/dl (32-36); Neutrophil # 1.9 K/mm3 (1.3-6.0); Neutrophil % 37.5 % (42-75.0); Platelet Count 177 K/mm3 (150-450); Red Blood Count 4.45 M/mm3 (4.2-5.4); Red Cell Distribution Width 13.2 % (11.5-14.0); White Blood Count 4.9 K/mm3 (4.0-10.5)
[2017-09-07 08:08] LABS: Albumin * 3.8 gm/dl (3.4-5.0); Anion Gap 9.5 mmol/L (6.8-13.8); BUN/Creatinine Ratio 8.1 (9.0-21.6); Bilirubin, Total 0.4 mg/dL (0.0-1.1); Ca. Corrected For Albumin 8.4 mg/dL (8.4-10.2); Calcium * 8.6 mg/dL (7.9-10.9); Carbon Dioxide 28.2 mmol/L (24-32.6); Potassium 3.7 mmol/L (3.4-4.6); Total Protein 8.2 gm/dL (6.2-8.2)
[2017-09-07] MEDS ORDERED: ALBUTEROL SULFATE 2.5 MG/0.5 ML VIAL.NEB IH ONE ×2 (08:08→08:20)
--- NOTE | 2017-09-07 08:20 | ERNOTE ---
Time Seen by Provider: 09/07/17 08:03 Stated Complaint: HEADACHE, COUGH, BODY ACHES. Presenting Symptoms:: cough Source: patient Exam Limitations: no limitations Immunizations: IMMUNIZATION HX Immunizations Up to Date Yes History of Influenza Vaccine Yes Hx Pneumococcal Vaccination Yes Allergies/Adverse Reactions: Allergies ibuprofen Allergy (Verified 09/07/17 07:32) venom-honey bee [bee venom (honey bee)] Allergy (Verified 09/07/17 07:32) Hives sucralfate Adverse Reaction (Verified 09/07/17 07:32) Nausea Home Medications: HOME MEDICATIONS SUMAtriptan SUCCINATE [Imitrex] 100 mg PO PRN PRN 09/25/12 [Last Taken Unknown] Acetaminophen [Tylenol] 650 mg PO QID PRN #0 tablet 10/11/15 [Last Taken Unknown ] Cyclobenzaprine HCl [Flexeril] 10 mg PO TID 01/03/17 [Last Taken 05/16/17] Omeprazole 40 mg PO DAILY 01/03/17 [Last Taken 05/16/17] Methylprednisolone [Medrol Dosepak] 4 mg PO DAILY #21 tab.ds.pk 08/21/17 [Last Taken Unknown] Albuterol Sulfate [Albuterol Sulfate 2.5 MG/3 ML] 2.5 mg IH Q4H PRN #25 vial.neb 09/07/17 [Last Taken Unknown] Albuterol Sulfate [Proair Hfa] 1 - 2 puff IH Q6H PRN #1 hfa.aer.ad 09/07/17 [ Last Taken Unknown] - History of Present Ilness Narrative: Patient states that she has had URI symptoms for about a month and a half. She was seen in the ER three weeks ago, diagnosed with otitis media and started on augmentin which she finished. She does not feel that she got any better, but didn't get worse either. She has not followed up with her doctor. She has a nebulizer at home but has been out of medication for quite a while. Nobody in her house smokes anymore but 'everyone' has URI symptoms. Timing: constant Frequency/Possible Cause: Reports: out of med. Denies: smoke exposure Modifying Factors - Improves: Reports: nothing Modifying Factors - Worsens: Reports: nothing Associated Symptoms: Reports: cough, shortness of breath, nasal congestion, nasal drainage, earache, muscle aches. Denies: chest pain/soreness, headache, sore throat, fever/chills Prior Treatment: Reports: recently seen Review of Systems - Review of Systems Constitutional: Present: recent illness. Absent: fever ENT: Present: nose congestion, nasal drainage Respiratory: Present: shortness of breath, cough Cardiology: Absent: chest pain Gastrointestinal/Abdominal: Present: nausea. Absent: vomiting, diarrhea, abdominal pain Genitourinary: Present: no symptoms reported Musculoskeletal: Present: other - aches Skin: Absent: rash Neurological: Absent: headache - Patient's Past Medical History Patient History - Medical: Anxiety, Arthritis, Bipolar, Depression, GERD, Liver Disease Patient History - Cardiac/Respiratory: Asthma, Bronchitis, COPD, CVA/Stroke, Pneumonia Patient History - Cancer: No Hx of Cancer Patient History - Surgical Procedures: Cholecystectomy, , D & C, Tubal Ligation, Other Patient History - Other: Other - Family History Mother Family History - Medical: Diabetes Type 1 Family History - Cardiac/Respiratory: CHF, CVA/Stroke Father Family History - Medical: Brother Family History - Medical: Diabetes Type 1 Family History - Cardiac/Respiratory: CVA/Stroke - Social History Living Situations: home Abuse History: No History of abuse Psych History: Hx of Anxiety, Hx of Depression Smoking Status: Former smoker Alcohol Use: none Drug Use: none - Immunizations Immunizations Up to Date: Yes Hx Pneumococcal Vaccination: Yes History of Influenza Vaccine: No - not yet this season Physical Exam - Physical Exam General Appearance: Present: wd/wn, alert, no apparent distress Head Exam: Present: normal inspection Eye Exam: Normal inspection: bilateral, PERRL: bilateral Ears, Nose, Throat: Present: normal except - - tympanic membranes dull, no erythema, left turbinates swollen, normal pharynx. Absent: dry mucous membranes Neck: Present: normal inspection. Absent: lymphadenopathy (R), lymphadenopathy (L) Respiratory: Present: no respiratory distress, no accessory muscle use, decreased breath sounds, wheezing - occasional Cardiovascular/Chest: Present: regular rate, rhythm, no murmur Neurological Exam: Present: alert, oriented, normal mood/affect Skin Exam: Present: normal color, warm/dry ED Progress - Results and Orders Patient's Lab Results:: I have reviewed the patient's lab results. - Vital Signs Patient's Vital Signs:: I have reviewed the patient's vital signs. Vital Signs: Vital Signs 09/07/17 07:28 Temperature 36.2 C L Pulse Rate 71 Respiratory 14 Rate Blood Pressure 119/77 O2 Sat by Pulse 97 Oximetry - X-Ray X-Ray #1 X-Ray: chest - possible bronchitis, no infiltrate Interpretation: Reviewed by me - Progress/Reassessment Chief Complaint: Upper Respiratory Symptoms Progress Note-Subjective: 09/07/17 09:03 discussed test result with patient, improved air movement after neb treatment, discussed diagnosis and plan, will set up follow up appointment Departure Clinical Impression: Upper respiratory infection Qualifiers: URI type: unspecified viral URI Qualified Code(s): J06.9 - Acute upper respiratory infection, unspecified; B97.89 - Other viral agents as the cause of diseases classified elsewhere; B97.89 - Other viral agents as the cause of diseases classified elsewhere - Departure Disposition: Home self-care Condition: Good Instructions: Upper Respiratory Infection, Adult, [id number] Additional Instructions: use tylenol for the ear pain use your nebulizer as needed for shortness of breath try a nasal spray like nasonex or flonase for the congestion try mucinex to help you loosen your phlegm Referrals: Madi Cevallos MD [Primary Care Provider] - 09/20/17 11:00 am Prescriptions: Albuterol Sulfate [Proair Hfa] 1 - 2 puff IH Q6H PRN #1 hfa.aer.ad PRN Reason: Shortness Of Breath Albuterol Sulfate [Albuterol Sulfate 2.5 MG/3 ML] 2.5 mg IH Q4H PRN #25 vial.neb PRN Reason: Shortness Of Breath/Wheezing
[2017-09-07] MEDS ORDERED: ACETAMINOPHEN 325 MG TABLET PO ONE (09:03)
[2017-09-07] MEDS ORDERED: ACETAMINOPHEN 325 MG TABLET ONE (09:08)
[2017-09-07 09:11] VITALS: BP 120/78
== END 2017-09-07 09:15 | disposition home or self-care (01) ==
LOC: ER 07:21
DX: J06.9 Acute upper respiratory infection, unspecified (principal); B97.89 Other viral agents as the cause of diseases classified elsewhere; F31.70 Bipolar disorder, currently in remission, most recent episode unspecified; K21.9 Gastro-esophageal reflux disease without esophagitis; J44.9 Chronic obstructive pulmonary disease, unspecified; F41.8 Other specified anxiety disorders; M19.90 Unspecified osteoarthritis, unspecified site

== ENCOUNTER 2019-09-12 10:41 | Observation (INO) ==
[2019-09-12] MEDS ORDERED: NORMAL SALINE 1,000 ML IV ONE (11:15)
[2019-09-12] MEDS ORDERED: PANTOPRAZOLE SODIUM 40 MG/100 ML PIGGYBACK IV ONE (11:16)
[2019-09-12] MEDS ORDERED: MORPHINE SULFATE 4 MG/ML SYRG IV ONE (11:16)
[2019-09-12] MEDS ORDERED: ONDANSETRON HCL/PF 2 MG/ML VIAL IV ONE ×2 (11:17→15:01)
[2019-09-12 11:29] LABS: Hematocrit 42.6 % (37.0-47.0); Mean Cell Volume 89.9 fl (78-100); Mean Corpuscular Hemoglobin 29.5 pg (27-31); Mean Corpuscular Hgb Conc 32.9 g/dl (32-36); Mean Platelet Volume 10.6 fl (8-12.5); Neutrophil # 5.8 K/mm3 (1.3-6.0); Neutrophil % 74.1 % (42-75.0); Platelet Count 263 K/mm3 (150-450); Red Blood Count 4.74 M/mm3 (4.2-5.4); Red Cell Distribution Width 12.8 % (11.5-14.0); White Blood Count 7.8 K/mm3 (4.0-10.5)
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
[2019-09-12 11:42] LABS: Albumin * 4.3 gm/dl (3.4-5.0); Anion Gap 15.9 mmol/L (6.8-13.8); BUN/Creatinine Ratio 6.1 (9.0-21.6); Bilirubin, Total 0.3 mg/dL (0.0-1.1); Ca. Corrected For Albumin 8.4 mg/dL (8.4-10.2); Potassium 3.9 mmol/L (3.4-4.6); Total Protein 8.7 gm/dL (6.2-8.2)
[2019-09-12 12:06] LABS: Urine Bilirubin Negative (NEGATIVE); Urine Blood Negative /ul (NEGATIVE); Urine Ketone Negative (NEGATIVE); Urine Nitrite Negative (NEGATIVE); Urine Protein Negative (NEGATIVE); Urine Specific Gravity 1.025 SP.GR. (1.005-1.010); Urine Urobilinogen Normal (NORMAL)
[2019-09-12 12:11] LABS: Urine Appearance Clear (CLEAR); Urine Bacteria TRACE; Urine Color Yellow; Urine RBC None Seen /hpf (0-5); Urine WBC 0-5 /hpf (0-5)
[2019-09-12] MEDS ORDERED: DIATRIZOATE MEGLUMINE, SODIUM 30 ML BTL PO ONE (12:54)
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
[2019-09-12] MEDS ORDERED: NON-FORMULARY 1 DOSE DOSE (Albuterol Sulfate [Albuterol Sulfate 2.5 Mg/3 Ml] 2.5 MG) IH PRN (19:11)
[2019-09-12] MEDS: NORMAL SALINE 1,000 ML IV PRN (19:23)
[2019-09-12] MEDS ORDERED: ALBUTEROL SULFATE 2.5 MG/0.5 ML VIAL.NEB IH PRN (19:36)
[2019-09-12] MEDS: QUEtiapine FUMARATE 100 MG TABLET PO SCH (20:59)
[2019-09-12] MEDS: ALPRAZolam 1 MG TABLET PO SCH (20:59)
[2019-09-12] MEDS: DIVALPROEX SODIUM 500 MG TAB.SR.24H PO SCH (20:59)
[2019-09-12] MEDS ORDERED: QUETIAPINE FUMARATE 200 MG PO SCH (21:00)
[2019-09-13] MEDS: NORMAL SALINE 1,000 ML IV PRN ×3 (03:38→20:05)
--- NOTE | 2019-09-13 08:49 | PN ---
Subjective - Date and Time Seen Date: 09/13/19 Time: 07:45 Subjective Narrative: She feels slightly better than yesterday, but not much. She denies passing gas or having a BM. Objective - Review of Systems Generalized/Overall Review: Denies: Fever Respiratory: Denies: Cough Cardiac: Denies: Chest Pain Abdominal: Reports: Nausea, Diarrhea. Denies: Vomiting Genitourinary Symptoms: Reports: No Symptoms Reported - Vitals Vitals: Last Vital Signs Temp 37.4 C 09/13/19 08:02 Pulse 88 09/13/19 08:02 Resp 16 09/13/19 08:02 BP 113/65 09/13/19 08:02 Pulse Ox 98 09/13/19 08:02 - Abnormal Lab Findings Abnormal Lab Findings: Abnormal Lab Results 09/12/19 09/12/19 09/13/19 Range/Units 11:25 11:25 05:05 Immature Gran % (Auto) 0.50 H (0.001-0.429) % Immature Gran # (Auto) 0.04 H (0.000-0.0310) K/mm3 Lymphocytes % 18.5 L (20-51) % Lymphocytes # 1.44 L (1.5-3.5) k/mm3 Anion Gap 15.9 H (6.8-13.8) mmol/L BUN/Creatinine Ratio 6.1 L (9.0-21.6) ALT 16 L (19-67) U/L Total Protein 8.7 H (6.2-8.2) gm/dL Amylase 117 H (25-115) U/L Gastric Occult Blood Positive H - Exam Constitutional: Present: Alert, Cooperative, Obese Respiratory: Present: lungs clear, normal breath sounds, no respiratory distress Cardiovascular/Chest: Present: regular rate, rhythm Abdomen: Present: soft, nontender - with significant palpation Extremity: Absent: lower extremity edema Eye contact: Present: cooperative Assessment/Plan - Problems/Diagnosis (1) Small bowel obstruction Problem: Suspected Narrative: NG tube placed yesterday, with mild improvement. CT showed "Moderate gastric distention, with bowel wall thickening of the anterior aspect of the distal stomach and at the level of the pylorus. As stated above, consider potential partial gastric outlet obstruction. Consider possible neoplastic process or focal gastritis clinically. Recommend consideration of further evaluation by upper endoscopy." Recommend eval for upper endoscopy after DC. She is complaining of bloating, and will add simethicone. Diet has been advanced to clears, and will further advance if she can tolerate it. She reports feeling hungry. Continue IV fluids until she can maintain po hydration. She tolerated deep palpation with distraction without difficulty, so if an SBO was present on admission, it was not present during my exam. Other family members have some similar symptoms, so the differential includes also viral gastroenteritis, and food poisoning. She did not have significant lab abnormalities. Her vitals are normal, so she does not have objective signs of pain. (2) Essential hypertension Problem: Chronic Narrative: HTN listed in her problem list, but no antihypertensive agents are included in her med list. Her BP is not elevated. (3) Dementia Problem: Chronic Narrative: She reports this as a recent diagnosis. Continue home meds (4) Gastroesophageal reflux Problem: Chronic (5) Hepatitis C Problem: Chronic (6) Bipolar 1 disorder Problem: Chronic Narrative: Continue home meds. (7) COPD (chronic obstructive pulmonary disease) Problem: Chronic Narrative: She is oxygenating well on room air with clear lung sounds. (8) Chest pain Problem: Acute Narrative: Neg troponins.
[2019-09-13] MEDS ORDERED: FLU VACC QS2019-20(6MOS UP)/PF 60 MCG/0.5 ML SYRINGE IM ONE (09:00)
[2019-09-13] MEDS: DIVALPROEX SODIUM 500 MG TAB.SR.24H PO SCH ×2 (09:01→20:41)
[2019-09-13] MEDS: ALPRAZolam 1 MG TABLET PO SCH ×2 (09:01→20:41)
[2019-09-13] MEDS: ONDANSETRON HCL/PF 2 MG/ML VIAL IV PRN ×2 (09:41→20:17)
[2019-09-13] MEDS ORDERED: traMADol HCL 50 MG TABLET PO PRN (11:43)
[2019-09-13] MEDS ORDERED: SIMETHICONE 80 MG TAB.CHEW PO PRN (11:56)
[2019-09-13] MEDS: QUEtiapine FUMARATE 100 MG TABLET PO SCH (20:41)
[2019-09-14] MEDS: NORMAL SALINE 1,000 ML IV PRN (04:25)
[2019-09-14] MEDS: DIVALPROEX SODIUM 500 MG TAB.SR.24H PO SCH (08:03)
[2019-09-14] MEDS: ALPRAZolam 1 MG TABLET PO SCH (08:03)
--- NOTE | 2019-09-14 13:53 | DS ---
(1) Small bowel obstruction Problem: Suspected (2) Essential hypertension Problem: Chronic (3) Dementia Problem: Chronic (4) Gastroesophageal reflux Problem: Chronic (5) Hepatitis C Problem: Chronic (6) Bipolar 1 disorder Problem: Chronic (7) COPD (chronic obstructive pulmonary disease) Problem: Chronic (8) Chest pain Problem: Resolved Date of Discharge:: 09/14/19 Description of Stay: Patient with past medical history of hypertension, diabetes, anxiety, dementia presented to the ER with abdominal pain. She reports being diagnosed with gastritis last week, and has been feeling somewhat better, but it acutely worsened the night before admission after eating dinner. She reported vomiting coffee-ground material and having diarrhea. She states the rest of her family has been having diarrhea, but they are not vomiting. She says she had a temperature up to 100 and has been feeling chilled. She denies medication changes or recent travel. She states she is also having some chest pain, and troponins were negative. No signs of ischemia or infarct on EKG. Her abdominal pain is upper. Denies urinary complaints. She has had a cholecystectomy in the past, as well as C-sections. Work-up in the ED is suggestive of a small bowel obstruction, and NG tube was placed. CT abdomen/pelvis showed " Moderate gastric distention, with bowel wall thickening of the anterior aspect of the distal stomach and at the level of the pylorus. As stated above, consider potential partial gastric outlet obstruction." The course of her recovery indicates her symptoms may still have been due to gastritis. The NG tube was placed in the ED for possible SBO, but her abdomen was quite soft and nontender the day after admission. Peptic ulcer also in the differential, and she is already prescribed omeprazole. She inadvertently removed the NG tube on the morning of 09/14. She tolerated a diet. She did not have further vomiting during her stay, and her Hgb was 14.0. Gastroccult was positive. Simethicone was added for belching, and this was the only medication change. Xrays done on 09/14 were negative for small bowel obstruction. Recommend upper endoscopy after DC, and will place surgery referral with DC orders. Procedures Performed: none Results and Findings: Lab Pending Results 09/12/19 11:25: WBC 7.8, RBC 4.74, Hgb 14.0, Hct 42.6, MCV 89.9, MCH 29.5, MCHC 32.9, RDW 12.8, Plt Count 263, MPV 10.6, Immature Gran % (Auto) 0.50 H, Immature Gran # (Auto) 0.04 H, Neutrophils % 74.1, Lymphocytes % 18.5 L, Monocytes % 6.2, Eosinophils % 0.3, Basophils % 0.4, Nucleated RBC % 0.0, Neutrophils # 5.8, Lymphocytes # 1.44 L, Monocytes # 0.5, Eosinophils # 0.0, Absolute Basophils 0.0 09/12/19 11:25: Sodium 141, Plasma Sodium 141, Potassium 3.9, Chloride 104, Carbon Dioxide 25.0, Anion Gap 15.9 H, BUN 6, Creatinine 0.98, Est GFR (Non-Af Amer) 62, BUN/Creatinine Ratio 6.1 L, Random Glucose 109, Calcium 9.0, Calcium Adj for Albumin 8.4, Total Bilirubin 0.3, AST 16, ALT 16 L, Alkaline Phosphatase 118, Total Protein 8.7 H, Albumin 4.3, Amylase 117 H, Lipase 193 09/12/19 11:25: Troponin I Less than 0.017 09/12/19 12:01: Urine Color Yellow, Urine Appearance Clear, Urine pH 6.0, Ur Specific [place] 1.025, Urine Protein Negative, Urine Glucose (UA) Negative, Urine Ketones Negative, Urine Blood Negative, Urine Nitrate Negative, Urine Bilirubin Negative, Urine Urobilinogen Normal, Ur Leukocyte Esterase Negative, Urine RBC None seen, Urine WBC 0-5, Ur Epithelial Cells 0-5, Urine Bacteria Trace, Urine Culture Comments No culture indicated 09/13/19 01:35: Troponin I Less than 0.017 09/13/19 05:05: Gastric Occult Blood Positive H Discharge Location: Home Disposition: Home self-care Condition: Fair Discharge Activity: Activity as tolerated Discharge Diet: Low fat/chol Referrals: Alton Barraza DO [Primary Care Provider] - One Week Aida Parker DO [Staff Physician] - One Week Prescriptions (Any new or edited meds): Simethicone [Mylicon Chewable Tablets] 40 mg PO QID PRN #1 bottle PRN Reason: Indigestion Transmission Status: Pending to [facility] - [place], [place] Complete Home Medications List: Complete Home Medication List: Albuterol Sulfate [Albuterol Sulfate 2.5 MG/3 ML] 2.5 mg IH Q4H PRN #25 vial.neb 09/07/17 Divalproex Sodium [Depakote ER] 500 mg PO BID 01/26/18 Memantine HCl [Namenda] 5 mg PO DAILY 01/26/18 QUEtiapine FUMARATE [Seroquel] 100 mg PO DAILY 01/26/18 Donepezil HCl [Aricept] 5 mg PO DAILY 05/14/18 Hydroxyzine HCl 50 mg PO BID 05/14/18 Mirtazapine [Remeron] 45 mg PO PRN PRN MDD 45mg 05/14/18 Montelukast Sodium [Singulair] 10 mg PO DAILY 05/14/18 QUEtiapine FUMARATE [Seroquel] 200 mg PO HS 05/14/18 aspirin 81 mg tablet,delayed release 81 mg PO DAILY 05/21/18 oxybutynin chloride 10 mg tablet,extended release 24 hr 10 mg PO DAILY #30 tab 05/23/18 traZODone HCL [Trazodone HCl] 50 mg PO DAILY 07/18/18 levothyroxine 50 mcg tablet See Rx Instructions .ROUTE .COMPLEX #30 tab 01/31/19 sumatriptan succinate 100 mg tablet See Rx Instructions PO .COMPLEX #9 tab 05/01/19 cyclobenzaprine 10 mg tablet See Rx Instructions .ROUTE .COMPLEX #90 tablet 06/24/19 folic acid 1 mg tablet See Rx Instructions .ROUTE .COMPLEX #30 tablet 07/25/19 omeprazole 40 mg capsule,delayed release See Rx Instructions .ROUTE .COMPLEX #30 capsule 07/25/19 predniSONE [Prednisone] 3 tab PO DAILY #15 tab 08/16/19 alprazolam 1 mg tablet See Rx Instructions .ROUTE .COMPLEX #90 tablet 08/25/19 clonidine HCl 0.2 mg tablet See Rx Instructions .ROUTE .COMPLEX #117 tablet 08/25/19 traMADol HCL [Ultram] 50 mg PO Q8H PRN 09/12/19 Simethicone [Mylicon Chewable Tablets] 40 mg PO QID PRN #1 bottle 09/14/19
[2019-09-14 14:16] VITALS: BP 116/73
== END 2019-09-14 14:55 | disposition home or self-care (01) ==
LOC: ER 10:41 → MS 10:41
PROVIDERS: ADMIT Family Medicine; ATTEND Family Medicine
CPT/HCPCS: 36415; 71010; 71045; 74019; 74020; 74177; 80053; 81001; 82150; 82272; 83690; 84484; 85025; 90686; 93005; 96365; 96375; 99285; G0008; G0378; J2405; Q9963; Q9967